=== PATIENT | female | born 1990 | race Two or more races ===

== ENCOUNTER 2020-09-11 14:32 | Emergency (ER) | payer MEDICAID ==
[~2020-09-11] VITALS: Ht 165.1 cm; Wt 83.7 kg
[~2020-09-11 14:32] MED LIST: CHLO25TA4 PO; DOCU-131 PO; HYDR-2214 PO; IBUP-11 PO; IBUP-1222 PO; PREN1TAB60 PO
--- NOTE | 2020-09-11 15:10 | NUR ---
PATIENT WALKED BACK FROM LOBBY WITH CHIEF C/O "I FEEL LIKE I HAVE AN AIR BUBBLE ON THE RIGHT SIDE OF MY CHEST." PATIENT REPORTS ISSUE HAS BEEN GOING ON SINCE WEDNESDAY. PATIENT DENIES N/V/D, NO SOB. CONNECTED TO MONITOR, VSS, NADN, CALL LIGHT WITHIN REACH.
[2020-09-11 15:32] VITALS: BP 112/71
[2020-09-11 15:38] LABS: ALANINE AMINOTRANSFERASE 23 U/L (12-78); ANION GAP 6 mmol/L (5-15); CALCIUM 8.8 mg/dL (8.5-10.1); CHLORIDE 113 mmol/L (98-107); CREATININE 0.75 mg/dL (0.55-1.02)
[2020-09-11 15:39] LABS: BASOPHILS % (AUTO) 1 % (0-1); EOSINOPHILS % (AUTO) 1 % (1-7); LYMPHOCYTES % (AUTO) 19 % (22-44); MEAN CORPUSCULAR HGB CONC 35.2 g/dL (32.4-35.8); MEAN PLATELET VOLUME 7.1 fL (7.4-10.4); MONOCYTES % (AUTO) 8 % (2-9); NEUTROPHILS % (AUTO) 71 % (42-75); PLATELET COUNT 462 x10^3/uL (130-400); RED BLOOD COUNT 4.67 x10^6/uL (3.82-5.3); RED CELL DISTRIBUTION WIDTH 13.6 % (9.6-15.2)
[2020-09-11 15:40] LABS: MD NO
[2020-09-11 15:43] LABS: ALKALINE PHOSPHATASE 67 U/L (45-117); BILIRUBIN,TOTAL 0.6 mg/dL (0.2-1.0); TOTAL PROTEIN 6.9 g/dL (6.4-8.2); TROPONIN I < 0.015 ng/mL (0.000-0.045)
--- NOTE | 2020-09-11 16:18 | NUR ---
PT REC'VD DISCHARGE INSTRUCTIONS AND EDUCATION. PT HAD NO FURTHER QUESTIONS. PT AMBULATED TO DC DESK WITH SON IN ARMS, STEADY GAIT.
== END 2020-09-11 16:21 | disposition home or self-care (01) ==
LOC: ED 16:05
DX: R07.89 Other chest pain (principal); R94.31 Abnormal electrocardiogram [ECG] [EKG]; Z90.89 Acquired absence of other organs; Z88.0 Allergy status to penicillin; Z88.2 Allergy status to sulfonamides
CPT/HCPCS: 36415; 71045; 80053; 83690; 84484; 84703; 85025; 93005; 99285